=== PATIENT | male | born 1985 | race Caucasian/White ===

== ENCOUNTER 2018-09-18 11:57 | Inpatient (IN) | payer OTHER ==
[2018-09-18 13:58] VITALS: BMI 29.2
--- NOTE | 2018-09-18 16:39 | HP ---
COWS - Scale Resting Pulse: 1= [place] 81-100 Sweatin= No chills or Flushing Restless Observation: 1= Difficult to Sit Still Pupil Size: 0= Normal to Room Light Bone or Joint Aches: 0= None Runny Nose/ Eye Tearin= None GI Upset > 30mins: 0= None Tremor Observation: 0= None Yawning Observation: 0= None Anxiety or Irritability: 0= None Goose Flesh Skin: 0=Smooth Skin COWS Score: 2 CIWA Score - Admission Criteria OASAS Guidelines: Admission for Medically Managed Detox: Requires at least one of the followin. CIWA greater than 12 2. Seizures within the past 24 hours 3. Delirium tremens within the past 24 hours 4. Hallucinations within the past 24 hours 5. Acute intervention needed for co occurring medical disorder 6. Acute intervention needed for co occurring psychiatric disorder 7. Severe withdrawal that cannot be handled at a lower level of care (continued vomiting, continued diarrhea, abnormal vital signs) requiring intravenous medication and/or fluids 8. Admission ROS [facility] Chief Complaint: 33 y/o M with PMH HTN, asthma, bipolar, depression, who presents for detox from heroin. Allergies/Adverse Reactions: Allergies Allergy/AdvReac Type Severity Reaction Status Date / Time No Known Allergies Allergy Verified 09/18/18 13:51 History of Present Illness: 33 y/o M with PMH HTN, asthma, bipolar, depression, who presents for detox from heroin. States that he last used this AM at 5AM, 3 bags worth. Used via inhalation today, however usually uses via IVDA. Injects into b/l antecubital fossa, and occasionally into neck. Denies hx endocarditis, abscess or cellulitis. Uses 15 -20 bags daily via IVDA. Longest sobriety 3 yrs when in care home for drug possession. States that he does not know why he uses heroin. Was in a methadone program [id number] at [facility] but does not recall the dose he was on. Last used cocaine yesterday via IVDA 10 bags/qd. Usually uses via speedball in combination with heroin. K2 used daily 5-6 blunts. Marijuana used "whenever he can." Was at detox [facility] for heroin - 2016. Denies recent rehab, detox PMH: as above PsxH: denies meds: ventolin allergies: NKDA FH: denies SH: lives in an apt in [place]. currently doesn't work. 1/2 ppd smoker since age 16. cocaine, heroin, speedball, k2, and marijuana use as above. denies frequent alcohol use. would not specify. Exam Limitations: No Limitations - Ebola screening Have you traveled outside of the country in the last 21 days: No (N) Have you had contact with anyone from an Ebola affected area: No Have you been sick,other than usual withdrawal symptoms: No Do you have a fever: No - Review of Systems Constitutional: No Symptoms Reported EENT: reports: No Symptoms Reported Respiratory: reports: No Symptoms reported Cardiac: reports: No Symptoms Reported GI: reports: No Symptoms Reported : reports: No Symptoms Reported Musculoskeletal: reports: No Symptoms Reported Integumentary: reports: No Symptoms Reported Neuro: reports: No Symptoms reported Endocrine: reports: No Symptoms Reported Hematology: reports: No Symptoms Reported Psychiatric: reports: Orientated x3 Patient History - Patient Medical History Hx Anemia: No Hx Asthma: Yes Hx Chronic Obstructive Pulmonary Disease (COPD): No Hx Cancer: No Hx Cardiac Disorders: No Hx Congestive Heart Failure: No Hx Hypertension: Yes Hx Hypercholesterolemia: No Hx Pacemaker: No HX Cerebrovascular Accident: No Hx Seizures: No Hx Dementia: No Hx Diabetes: No Hx Gastrointestinal Disorders: No Hx Liver Disease: No Hx Genitourinary Disorders: No Hx Sexually Transmitted Disorders: No Hx Renal Disease (ESRD): No Hx Thyroid Disease: No Hx Human Immunodeficiency Virus (HIV): No Hx Hepatitis C: No Hx Depression: Yes Hx Suicide Attempt: No Hx Bipolar Disorder: Yes Hx Schizophrenia: No - Patient Surgical History Past Surgical History: No - PPD History Previous Implant?: No PPD to be Administered?: Yes - Reproductive History Patient is a Female of Child Bearing Age (11 -55 yrs old): No - Smoking Cessation Smoking history: Current every day smoker Aproximately how many cigarettes per day: 10 Hx Chewing Tobacco Use: No Initiated information on smoking cessation: Yes 'Breaking Loose' booklet given: 09/18/18 - Substance & Tx. History Hx Alcohol Use: Yes Substance Use Type: Alcohol, Cocaine, Heroin Hx Substance Use Treatment: Yes (jonah concepcion 2016) - Substances abused Heroin Substance route: Injection Frequency: Daily Amount used: 15 BAGS Age of first use: 28 Date of last use: 09/18/18 K2/Spice Substance route: Smoking Frequency: Daily Amount used: 5-6 BLUNTS Age of first use: 28 Date of last use: 09/16/18 Cocaine Substance route: Injection Frequency: Daily Amount used: 10 BAGS Age of first use: 28 Date of last use: 09/18/18 Marijuana/Hashish Substance route: Smoking Frequency: Daily Amount used: 3-4 BLUNTS Age of first use: 14 Date of last use: 09/18/18 Family Disease History - Family Disease History Family History: Denies Admission Physical Exam [facility] - Vital Signs Vital Signs: Vital Signs - 24 hr 09/18/18 13:42 Temperature 97.0 F L Pulse Rate 83 Respiratory 16 Rate Blood Pressure 137/84 - Physical General Appearance: Yes: Within Normal Limits HEENTM: Yes: Within Normal Limits Respiratory: Yes: Lungs Clear Neck: Yes: Supple Breast: Yes: Breast Exam Deferred Cardiology: Yes: S1, S2, Tachycardia Abdominal: Yes: Within Normal Limits Genitourinary: Yes: Within Normal Limits Back: Yes: Within Normal Limits Musculoskeletal: Yes: Within Normal Limits Extremities: Yes: Within Normal Limits, Other (+track west UE) Neurological: Yes: manager card II-XII NML intact Integumentary: Yes: Dry, Warm Lymphatic: Yes: Within Normal Limits - Diagnostic (1) Hypertension Current Visit: Yes Status: Chronic (2) Asthma Current Visit: Yes Status: Chronic (3) Bipolar 1 disorder Current Visit: Yes Status: Chronic (4) Depression Current Visit: Yes Status: Chronic (5) Opiate withdrawal Current Visit: Yes Status: Acute (6) Cocaine dependence Current Visit: Yes Status: Chronic (7) Marijuana abuse Current Visit: Yes Status: Chronic (8) IVDU (intravenous drug user) Current Visit: Yes Status: Chronic Cleared for Admission [facility] - Detox or Rehab [facility] Level of Care: Medically Managed Detox Regimen/Protocol: Methadone Breathalyzer - Breathalyzer Breathalyzer: 0 Urine Drug Screen - Test Device Lot number: [id number] Expiration date: 06/25/20 - Control Is test valid?: Yes - Results Drug screen NEGATIVE: No Urine drug screen results: THC-Marijuana, MARLENA-Cocaine, MOP-Opiates, OXY- Oxycodone, MTD-Methadone, BZO-Benzodiazepines Inpatient Rehab Admission - Rehab Decision to Admit Inpatient rehab admission?: No
[2018-09-18] MEDS ORDERED: ALBUTEROL SO4 0.083% IH SOL 2.5 MG/3 ML VIAL.NEB. NEB PRN (16:48)
[2018-09-18] MEDS ORDERED: MENTHOL/PHENOL 1 EACH UD MM PRN (16:52)
[2018-09-18] MEDS ORDERED: METHOCARBAMOL 500 MG TABLET PO PRN (16:52)
[2018-09-18] MEDS ORDERED: MELATONIN 5 MG TABLETS PO PRN (16:52)
[2018-09-18] MEDS ORDERED: IBUPROFEN 400 MG TABLET (FP) PO PRN (16:52)
[2018-09-18] MEDS ORDERED: MAGNESIUM HYDROX 2400MG/30ML ORAL SUSPENSION 30 ML CUP PO PRN (16:52)
[2018-09-18] MEDS ORDERED: MAG HYDROX/AL HYDROX/SIMETH 30 ML UNIT-DOSE CUP PO PRN (16:52)
[2018-09-18] MEDS ORDERED: ACETAMINOPHEN 325 MG TABLET (FP) PO PRN ×2 (16:52)
[2018-09-18] MEDS ORDERED: BISMUTH SUBSALICYLATE 524 MG/30 ML UD PO PRN (16:52)
--- NOTE | 2018-09-18 17:09 | PN ---
Teaching Attending Note Name of Resident: Macy Hernández ATTENDING PHYSICIAN STATEMENT I saw and evaluated the patient. I reviewed the resident's note and discussed the case with the resident. I agree with the resident's findings and plan as documented. SUBJECTIVE: 33 yo h/o HTN, asthma, bipolar here for heroin IV use. No h/o endocarditis, no HCV/HIV. Has been in a methadone program in the past. h/o cocaine IV use, K2 use and marijuana use. OBJECTIVE: Vital Signs - 24 hr 09/18/18 13:42 Temperature 97.0 F L Pulse Rate 83 Respiratory 16 Rate Blood Pressure 137/84 track west alert and oriented ASSESSMENT AND PLAN: OUD- will start methadone for heroin use
[2018-09-18] MEDS ORDERED: cloNIDine HCL 0.1 MG TABLET PO PRN (17:15)
[2018-09-18] MEDS ORDERED: METHADONE HCL 10 MG TABLET (FOR DETOX USE ONLY) PO ONE (18:15)
[2018-09-18] MEDS: NICOTINE 14 MG/24 HOURS TOPICAL PATCH TD SCH (18:59)
[2018-09-18] MEDS: hydrOXYzine HCL 25 MG TABLET (FP) PO PRN (22:32)
[2018-09-19] MEDS ORDERED: METHADONE HCL 10 MG TABLET (FOR DETOX USE ONLY) ONE (08:29)
[2018-09-19] MEDS ORDERED: METHADONE HCL 5 MG TABLET (FOR DETOX USE ONLY) ONE (08:29)
[2018-09-19] MEDS ORDERED: METHADONE (DETOX) 20 MG, METHADONE (DETOX) 5 MG PO ONE (10:00)
[2018-09-19 10:43] LABS: HEMATOCRIT 42.7 % (35.4-49); HEMOGLOBIN 14.4 GM/dL (11.7-16.9); MCH 31.5 pg (25.7-33.7); MCHC 33.6 g/dl (32.0-35.9); MEAN CELL VOLUME 93.7 fl (80-96); MEAN PLT VOLUME 7.7 fl (7.5-11.1); PLATELET COUNT 236 K/MM3 (134-434); RBC 4.56 M/mm3 (4.00-5.60); RDW 14.5 % (11.9-15.9)
[2018-09-19 10:54] LABS: ALBUMIN 3.7 g/dl (3.4-5.0); BILIRUBIN,TOTAL 0.3 mg/dL (0.2-1); CREATININE 0.9 mg/dL (0.55-1.3); POTASSIUM 4.3 mmol/L (3.5-5.1); TOT PROT 6.6 g/dl (6.4-8.2)
[2018-09-19] MEDS: PRENATAL VITAMINS W/ FOLIC ACID TABLET (FP) PO SCH (10:56)
[2018-09-19] MEDS: NICOTINE 14 MG/24 HOURS TOPICAL PATCH TD SCH (10:57)
--- NOTE | 2018-09-19 11:39 | PN ---
[facility] COWS - Scale Resting Pulse: 0= [place] 80 or Below Sweatin= Chills/Flushing Restless Observation: 1= Difficult to Sit Still Pupil Size: 1= Pupils >than Normal Bone or Joint Aches: 2= Severe Diffuse Aches Runny Nose/ Eye Tearin= Nasal Congestion GI Upset > 30mins: 2= Nausea/Diarrhea Tremor Observation of Outstretched Hands: 1= Tremor [place], Not Seen Yawning Observation: 1= 1-2x During Session Anxiety or Irritability: 1=Feels Anxious/Irritable Goose Flesh Skin: 0=Smooth Skin COWS Score: 11 S Progress Note (SOAP) Subjective: 33 years old male admitted on 09/18/18 for acute opiate withdrawal sx management doing well with methadone detox regimen tired body aches tremor Objective: 09/19/18 11:47 Vital Signs Temperature 97.5 F L 09/19/18 09:37 Pulse Rate 64 09/19/18 09:37 Respiratory Rate 20 09/19/18 09:37 Blood Pressure 130/82 09/19/18 09:37 O2 Sat by Pulse Oximetry (%) Laboratory Last Values WBC 5.0 K/mm3 (4.0-10.0) 09/19/18 07:30 RBC 4.56 M/mm3 (4.00-5.60) 09/19/18 07:30 Hgb 14.4 GM/dL (11.7-16.9) 09/19/18 07:30 Hct 42.7 % (35.4-49) 09/19/18 07:30 MCV 93.7 fl (80-96) 09/19/18 07:30 MCH 31.5 pg (25.7-33.7) 09/19/18 07:30 MCHC 33.6 g/dl (32.0-35.9) 09/19/18 07:30 RDW 14.5 % (11.9-15.9) 09/19/18 07:30 Plt Count 236 K/MM3 (134-434) 09/19/18 07:30 MPV 7.7 fl (7.5-11.1) 09/19/18 07:30 Sodium 139 mmol/L (136-145) 09/19/18 07:30 Potassium 4.3 mmol/L (3.5-5.1) 09/19/18 07:30 Chloride 105 mmol/L (98-107) 09/19/18 07:30 Carbon Dioxide 31 mmol/L (21-32) 09/19/18 07:30 Anion Gap 4 MMOL/L (8-16) L 09/19/18 07:30 BUN 15.0 mg/dL (7-18) 09/19/18 07:30 Creatinine 0.9 mg/dL (0.55-1.3) 09/19/18 07:30 Est GFR (CKD-EPI)AfAm 130.52 09/19/18 07:30 Est GFR (CKD-EPI)NonAf 112.62 09/19/18 07:30 Random Glucose 81 mg/dL (74-106) 09/19/18 07:30 Calcium 9.0 mg/dL (8.5-10.1) 09/19/18 07:30 Total Bilirubin 0.3 mg/dL (0.2-1) 09/19/18 07:30 AST 16 U/L (15-37) 09/19/18 07:30 ALT 27 U/L (13-61) 09/19/18 07:30 Alkaline Phosphatase 80 U/L (45-117) 09/19/18 07:30 Total Protein 6.6 g/dl (6.4-8.2) 09/19/18 07:30 Albumin 3.7 g/dl (3.4-5.0) 09/19/18 07:30 lab noted Assessment: 09/19/18 11:48 opiate withdrawal sx Plan: continue opiate detox
--- NOTE | 2018-09-19 14:54 | CONSULT ---
[facility] Psychiatric Consult - Data Date of interview: 09/19/18 Admission source: [facility] Identifying data: First admission to [facility] for this 33 y/o male self-referred for detoxification (heroin, cocaine, cannabis/K2). Seen at [address] [place] [address]. Patient is single, father of two, domiciled/long-term, unemployed and supported on food stamps. Substance Abuse History: Confirmed by the patient in this interview. Details in current [facility] report as follows : Smoking history: Current every day smoker. Aproximately how many cigarettes per day: 10. Hx Chewing Tobacco Use: No. Initiated information on smoking cessation: Yes. 'Breaking Loose' booklet given : 09/18/18. - Substance & Tx. History. Hx Alcohol Use: Yes. Substance Use Type: Alcohol, Cocaine, Heroin. Hx Substance Use Treatment: Yes (jonah concepcion 2016). - Substances abused. Heroin. Substance route: Injection. Frequency: Daily. Amount used: 15 BAGS. Age of first use: 28. Date of last use: 09/18/18. K2/Spice. Substance route: Smoking. Frequency : Daily. Amount used: 5-6 BLUNTS. Age of first use: 28. Date of last use: . Cocaine. Substance route: Injection. Frequency: Daily. Amount used : 10 BAGS. Age of first use: 28. Date of last use: 09/18/18. Marijuana/ Hashish. Substance route: Smoking. Frequency: Daily. Amount used: 3-4 BLUNTS. Age of first use: 14. Date of last use: 09/18/18 Medical History: Consistent with hypertension and bronchial asthma. Psychiatric History: Patient denies history of mental illness, OPD care or suicide attempts. Questionable historian (noted vague allusion to bipolar disorder in [facility] report : not corroborated by patient in the psychiatric interview). Physical/Sexual Abuse/Trauma History: Patient denies. Additional Comment: Urine drug screen results: THC-Marijuana, MARLENA-Cocaine, MOP- Opiates, OXY-Oxycodone, MTD-Methadone, BZO-Benzodiazepines. Noted. Mental Status Exam - Mental Status Exam Alert and Oriented to: Time, Place, Person Cognitive Function: Good Patient Appearance: Well Groomed Mood: Withdrawn, Irritable Affect: Mood Congruent, Constricted Patient Behavior: Fatigued, Cooperative Speech Pattern: Clear, Appropriate Voice Loudness: Normal Thought Process: Goal Oriented Thought Disorder: Not Present Hallucinations: Denies Suicidal Ideation: Denies Homicidal Ideation: Denies Insight/Judgement: Poor Sleep: Well Appetite: Good Muscle strength/Tone: Normal Gait/Station: Other (not observed ; patient in bed all morning) Psychiatric Findings - Problem List ([place] 1, 2,3) (1) Opiate withdrawal Current Visit: Yes Status: Acute (2) Cocaine dependence Current Visit: Yes Status: Chronic (3) Marijuana abuse Current Visit: Yes Status: Chronic (4) Substance induced mood disorder Current Visit: Yes Status: Chronic - Initial Treatment Plan Initial Treatment Plan: Psychoeducation. Sleep hygiene. Detoxification. NA meetings. Rehabilitation recommended. Observation.
[2018-09-19] MEDS: hydrOXYzine HCL 25 MG TABLET (FP) PO PRN (18:20)
[2018-09-20] MEDS ORDERED: METHADONE HCL 10 MG TABLET (FOR DETOX USE ONLY) PO ONE (10:00)
[2018-09-20] MEDS: NICOTINE 14 MG/24 HOURS TOPICAL PATCH TD SCH (10:32)
[2018-09-20] MEDS: PRENATAL VITAMINS W/ FOLIC ACID TABLET (FP) PO SCH (10:32)
[2018-09-20] MEDS: hydrOXYzine HCL 25 MG TABLET (FP) PO PRN (10:34)
[2018-09-20 13:19] VITALS: BP 137/91; PULSE 75; TEMP 97
--- NOTE | 2018-09-20 14:11 | PN ---
S COWS - Scale Resting Pulse: 0= [place] 80 or Below Sweatin= No chills or Flushing Restless Observation: 1= Difficult to Sit Still Pupil Size: 1= Pupils >than Normal Bone or Joint Aches: 2= Severe Diffuse Aches Runny Nose/ Eye Tearin= Runny Nose/Eyes GI Upset > 30mins: 1= Stomach Cramp Tremor Observation of Outstretched Hands: 1= Tremor [place], Not Seen Yawning Observation: 1= 1-2x During Session Anxiety or Irritability: 2=Irritable/Anxious Goose Flesh Skin: 0=Smooth Skin COWS Score: 11 S Progress Note (SOAP) Subjective: alert,irritable,anxious,interrupted sleep,pain in the body and back Objective: 09/20/18 14:08 Laboratory Last Values WBC 5.0 K/mm3 (4.0-10.0) 09/19/18 07:30 RBC 4.56 M/mm3 (4.00-5.60) 09/19/18 07:30 Hgb 14.4 GM/dL (11.7-16.9) 09/19/18 07:30 Hct 42.7 % (35.4-49) 09/19/18 07:30 MCV 93.7 fl (80-96) 09/19/18 07:30 MCH 31.5 pg (25.7-33.7) 09/19/18 07:30 MCHC 33.6 g/dl (32.0-35.9) 09/19/18 07:30 RDW 14.5 % (11.9-15.9) 09/19/18 07:30 Plt Count 236 K/MM3 (134-434) 09/19/18 07:30 MPV 7.7 fl (7.5-11.1) 09/19/18 07:30 Sodium 139 mmol/L (136-145) 09/19/18 07:30 Potassium 4.3 mmol/L (3.5-5.1) 09/19/18 07:30 Chloride 105 mmol/L (98-107) 09/19/18 07:30 Carbon Dioxide 31 mmol/L (21-32) 09/19/18 07:30 Anion Gap 4 MMOL/L (8-16) L 09/19/18 07:30 BUN 15.0 mg/dL (7-18) 09/19/18 07:30 Creatinine 0.9 mg/dL (0.55-1.3) 09/19/18 07:30 Est GFR (CKD-EPI)AfAm 130.52 09/19/18 07:30 Est GFR (CKD-EPI)NonAf 112.62 09/19/18 07:30 Random Glucose 81 mg/dL (74-106) 09/19/18 07:30 Calcium 9.0 mg/dL (8.5-10.1) 09/19/18 07:30 Total Bilirubin 0.3 mg/dL (0.2-1) 09/19/18 07:30 AST 16 U/L (15-37) 09/19/18 07:30 ALT 27 U/L (13-61) 09/19/18 07:30 Alkaline Phosphatase 80 U/L (45-117) 09/19/18 07:30 Total Protein 6.6 g/dl (6.4-8.2) 09/19/18 07:30 Albumin 3.7 g/dl (3.4-5.0) 09/19/18 07:30 RPR Titer Nonreactive (NONREACTIVE) 09/19/18 07:30 09/20/18 14:09 Vital Signs Temperature 97.0 F L 09/20/18 13:18 Pulse Rate 75 09/20/18 13:18 Respiratory Rate 16 09/20/18 13:18 Blood Pressure 137/91 09/20/18 13:18 O2 Sat by Pulse Oximetry (%) Assessment: 09/20/18 14:10 withdrawal symptom Plan: continue detox methadone regimen
--- NOTE | 2018-09-20 14:19 | DS ---
[facility] Detox Discharge Summary Admission Date: 09/18/18 Discharge Date: 09/20/18 - History Present History: Cannabis Dependence, Cocaine Dependence, Opioid Dependence, K 2 Pertinent Past History: patient did not want to complete treatment,signed release AMA,high risk of relapsing explained,patient understood, advise to call 911 if not feeling well or any problem call 911 - Physical Exam Results Vital Signs: Vital Signs Temperature 97.0 F L 09/20/18 13:18 Pulse Rate 75 09/20/18 13:18 Respiratory Rate 16 09/20/18 13:18 Blood Pressure 137/91 09/20/18 13:18 O2 Sat by Pulse Oximetry (%) Pertinent Admission Physical Exam Findings: withdrawal signs and symptom Laboratory Last Values WBC 5.0 K/mm3 (4.0-10.0) 09/19/18 07:30 RBC 4.56 M/mm3 (4.00-5.60) 09/19/18 07:30 Hgb 14.4 GM/dL (11.7-16.9) 09/19/18 07:30 Hct 42.7 % (35.4-49) 09/19/18 07:30 MCV 93.7 fl (80-96) 09/19/18 07:30 MCH 31.5 pg (25.7-33.7) 09/19/18 07:30 MCHC 33.6 g/dl (32.0-35.9) 09/19/18 07:30 RDW 14.5 % (11.9-15.9) 09/19/18 07:30 Plt Count 236 K/MM3 (134-434) 09/19/18 07:30 MPV 7.7 fl (7.5-11.1) 09/19/18 07:30 Sodium 139 mmol/L (136-145) 09/19/18 07:30 Potassium 4.3 mmol/L (3.5-5.1) 09/19/18 07:30 Chloride 105 mmol/L (98-107) 09/19/18 07:30 Carbon Dioxide 31 mmol/L (21-32) 09/19/18 07:30 Anion Gap 4 MMOL/L (8-16) L 09/19/18 07:30 BUN 15.0 mg/dL (7-18) 09/19/18 07:30 Creatinine 0.9 mg/dL (0.55-1.3) 09/19/18 07:30 Est GFR (CKD-EPI)AfAm 130.52 09/19/18 07:30 Est GFR (CKD-EPI)NonAf 112.62 09/19/18 07:30 Random Glucose 81 mg/dL (74-106) 09/19/18 07:30 Calcium 9.0 mg/dL (8.5-10.1) 09/19/18 07:30 Total Bilirubin 0.3 mg/dL (0.2-1) 09/19/18 07:30 AST 16 U/L (15-37) 09/19/18 07:30 ALT 27 U/L (13-61) 09/19/18 07:30 Alkaline Phosphatase 80 U/L (45-117) 09/19/18 07:30 Total Protein 6.6 g/dl (6.4-8.2) 09/19/18 07:30 Albumin 3.7 g/dl (3.4-5.0) 09/19/18 07:30 RPR Titer Nonreactive (NONREACTIVE) 09/19/18 07:30 - Medication Discharge Medications: Ambulatory Orders NK [No Known Home Medication] 09/18/18 - Diagnosis (1) Opiate withdrawal Current Visit: Yes Status: Acute (2) Asthma Current Visit: Yes Status: Chronic (3) Cocaine dependence Current Visit: Yes Status: Chronic (4) Hypertension Current Visit: Yes Status: Chronic (5) IVDU (intravenous drug user) Current Visit: Yes Status: Chronic (6) Marijuana abuse Current Visit: Yes Status: Chronic - AMA Did Patient Leave Against Medical Advice: Yes
[2018-09-21] MEDS ORDERED: METHADONE (DETOX) 10 MG, METHADONE (DETOX) 5 MG PO ONE (10:00)
[2018-09-22] MEDS ORDERED: METHADONE HCL 10 MG TABLET (FOR DETOX USE ONLY) PO ONE (10:00)
[2018-09-23] MEDS ORDERED: METHADONE HCL 5 MG TABLET (FOR DETOX USE ONLY) PO ONE (06:00)
== END 2018-09-20 14:16 | disposition left against medical advice (07) | DRG 770 ==
LOC: YASAS 11:57 → Y3N 17:56
PROVIDERS: ADMIT Surgery; ATTEND Surgery
PROC: HZ2ZZZZ Detoxification Services for Substance Abuse Treatment (ICD-10-PCS; principal; 2018-09-18)
DX: F11.23 Opioid dependence with withdrawal (principal); F14.20 Cocaine dependence, uncomplicated; F12.20 Cannabis dependence, uncomplicated; F19.20 Other psychoactive substance dependence, uncomplicated; F19.24 Other psychoactive substance dependence with psychoactive substance-induced mood disorder; F31.9 Bipolar disorder, unspecified; I10 Essential (primary) hypertension; J45.909 Unspecified asthma, uncomplicated
CPT/HCPCS: 36415; 80053; 85027; 86480; 86593; J0735